=== PATIENT | female | born 1955 ===

== ENCOUNTER 2016-10-30 09:13 | Day surgery (SDC) | payer MEDICAID ==
[2016-10-30 09:44] VITALS: RESP 18
[2016-10-30 09:45] VITALS: BMI 38.5
[2016-10-30] MEDS ORDERED: Lidocaine 1% Inj (20ml) ONE (14:25)
[2016-10-30] MEDS ORDERED: MethylPREDNISolone Depo 40 mg/ml Inj ONE (14:25)
[2016-10-30] MEDS ORDERED: Bupivacaine HCl 0.25% PF (10 ml) Inj ONE (14:25)
[2016-10-30] MEDS ORDERED: Iohexol 300 10 ML ONE (14:25)
[2016-10-30] MEDS ORDERED: Propofol 10 mg/ml Inj (20 ML) ONE (14:30)
[2016-10-30] MEDS ORDERED: Lactated Ringer's 1,000 ML IV ONE (14:39)
[2016-10-30] MEDS ORDERED: Lidocaine 1% Inj (20ml) IJ ONE (14:45)
[2016-10-30] MEDS ORDERED: methylPREDNISolone Depo 80 mg/ml Inj IM ONE (14:45)
[2016-10-30] MEDS ORDERED: Bupivacaine HCl 0.25% PF (10 ml) Inj IJ ONE (14:45)
[2016-10-30] MEDS ORDERED: Lactated Ringer's 1,000 ML IV SCH (14:55)
--- NOTE | 2016-10-30 15:20 | OP ---
PROCEDURE DATE: 10/30/2016 PREOPERATIVE DIAGNOSIS: Lumbar spondylosis. POSTOPERATIVE DIAGNOSIS: Lumbar spondylosis. PROCEDURE: Bilateral lumbar medial nerve branch block under fluoroscopic guidance at bilateral L3-L4, L4-L5 and L5-S1. COMPLICATIONS: None. EXPECTED BLOOD LOSS: None. ANESTHESIOLOGIST: Dr. Burns. TECHNIQUE: After informed consent was obtained, the patient was brought to the OR and placed on the table in prone position. All pressure points were padded, and sedation was administered by anesthesia. The patient's lumbosacral spine was then prepped with iodine x 3 and draped in normal sterile fashion. Using lidocaine with a 25 gauge needle, 1% lidocaine(3cc) was used for a skin wheal. X-ray was used in the AP view to locate the right L3-L4 intersection between the transverse process and the superior articular process. Using x-ray in the AP view, a 22 gauge 3-1/2 inch spinal needle was advanced to bony contact at the intersection of right L3-L4 superior articular process and transverse process. The patient had no paresthesia during placement of the needle. After negative aspiration for heme or CSF, 1 mL of 0.25% preservative-free Marcaine and Depo-Medrol was easily injected at this spot. This procedure was repeated for the right L4-L5, L5-S1 and left L3-4, L4-5 and L5-S1 under fluoroscopic guidance. The patient had no paresthesia during the procedure. 80 mg of Depo- Medrol was used for the case. The patient was brought to stage 2 recovery room with stable vital signs and bilateral lower extremity motor and sensory intact. Delia Sanchez MD cc: [id number] TT: 10/30/2016 15:19:34 jose CHRISTIE
[2016-10-30 16:53] VITALS: BP 149/69; PULSE 58; TEMP 97.6; O2SAT 98
--- NOTE | 2016-11-01 14:02 | RAD ---
PROCEDURE: Lumbar Epidural Injection HISTORY: PAIN MANAGEMENT TECHNIQUE: Fluoroscopic guidance was provided for epidural injection for pain management purposes. FINDINGS: IMPRESSION: Fluoroscopic guidance provided for epidural injection. Please refer procedure.
== END 2016-10-30 17:15 | disposition home or self-care (01) ==
LOC: H.OPSURG 09:13
PROVIDERS: ATTEND Anesthesiology Pain Medicine
DX: M47.816 Spondylosis without myelopathy or radiculopathy, lumbar region (principal)

== ENCOUNTER 2016-11-08 14:39 | Emergency (ER) | payer MEDICAID ==
[2016-11-08 14:39] VITALS: BMI 38.5
[2016-11-08 15:00] VITALS: BP 132/57; PULSE 66; RESP 18; TEMP 98.1; O2SAT 97
--- NOTE | 2016-11-08 16:58 | ED PDOC ---
HPI: Back Time Seen by Provider: 11/08/16 16:53 Chief Complaint (Nursing): Back Pain Chief Complaint (Provider): gallock pain History Per: Patient History/Exam Limitations: no limitations Previous Symptoms: Back Pain Additional Complaint(s): 61yo F in for evla of back pain acute sharp radiating from lower back up to head causing ANTONIO-intermittent on three occasions since last night. no vomiting or nausea. admits to night sweats x1 week no fever chills or body aches. denies saddle anesthesia, denies urine/BM incontinence denies numbness/tingling in LE. denies recent injury-admits to hx of chronic back pain currently seeing pain mgnt and had epidural inj. 9 days ago-denied any complication since. pt also c/o of cough-however recently dx with emphysema taking singuliar but not advair as Rx - Risk Factors AAA Risk Factors: Pos: Older Than 49 Years Of Age Neg: Hypertension, Connective Tissue Disease, Marfan's Syndrome, Dago- Danlos Syndrome, Prior AAA, 1st Degree Relative/s With AAA Past Medical History Reviewed: Historical Data, Nursing Documentation, Vital Signs Vital Signs: Last Vital Signs Temp 98.1 F 11/08/16 14:56 Pulse 66 11/08/16 14:56 Resp 18 11/08/16 14:56 BP 132/57 L 11/08/16 14:56 Pulse Ox 97 11/08/16 14:56 - Medical History PMH: Diabetes, Diverticulitis, Emphysema, HTN, Hypercholesterolemia Denies: Chronic Kidney Disease - Surgical History Surgical History: Cholecystectomy, Coronary Stent (X2) - Family History Family History: States: No Known Family Hx - Home Medications Home Medications: Ambulatory Orders Medication Instructions Recorded Aspirin [Aspirin EC] 81 mg PO DAILY 07/24/15 Atorvastatin [Lipitor] 10 mg PO DAILY 07/24/15 Metoprolol Succinate 25 mg PO HS 07/24/15 Albuterol HFA [Ventolin HFA 90 1 puff IH DAILY 10/30/16 mcg/actuation (8 g)] Famotidine [Pepcid] 20 mg PO DAILY 10/30/16 Fluticasone/Salmeterol 250/50 1 puff IH BID 10/30/16 [Advair Diskus] Montelukast [Singulair] 10 mg PO DAILY 10/30/16 Nitroglycerin [Nitrostat] 0.4 mg SL PRN PRN 10/30/16 Ranolazine [Ranexa] 500 mg PO BID 10/30/16 Valsartan/Hydrochlorothiazide 1 tab PO DAILY 10/30/16 [Valsartan and Hydrochlorothiazide 12.5 mg-80 ] metFORMIN [glucOPHAGE] 500 mg PO DAILY 10/30/16 - Allergies Allergies/Adverse Reactions: Allergies Allergy/AdvReac Type Severity Reaction Status Date / Time No Known Allergies Allergy Verified 06/25/14 10:07 Review of Systems ROS Statement: Except As Marked, All Systems Reviewed And Found Negative Constitutional: Positive for: Sweats. Negative for: Fever, Chills, Weakness Respiratory: Positive for: Cough, Wheezing Gastrointestinal: Negative for: Nausea, Vomiting, Abdominal Pain Genitourinary Female: Negative for: Dysuria, Hematuria Musculoskeletal: Positive for: Back Pain Neurological: Positive for: Headache. Negative for: Weakness, Numbness, Dizziness Physical Exam - Reviewed Nursing Documentation Reviewed: Yes Vital Signs Reviewed: Yes - Physical Exam Appears: Positive for: Well, Non-toxic, No Acute Distress Head Exam: Positive for: ATRAUMATIC, NORMAL INSPECTION, NORMOCEPHALIC Skin: Positive for: Normal Color, Warm, DRY Eye Exam: Positive for: Normal appearance Neck: Positive for: Normal, Painless ROM Cardiovascular/Chest: Positive for: Regular Rate, Rhythm Respiratory: Positive for: Wheezing. Negative for: Decreased Breath Sounds, Accessory Muscle Use, Crackles, Respiratory Distress, Plerual Rub Gastrointestinal/Abdominal: Positive for: Normal Exam, Bowel Sounds, Soft. Negative for: Tenderness Back: Positive for: Normal Inspection, Muscle Spasm. Negative for: L CVA Tenderness, R CVA Tenderness, Vertebral Tenderness, Decreased ROM Extremity: Positive for: Normal ROM Neurologic/Psych: Positive for: Alert, Oriented - ECG O2 Sat by Pulse Oximetry: 97 - Radiology X-Ray: Interpreted by De X-Ray Interpretation: No Acute Disease Medical Decision Making Medical Decision Making: flu negative in ED chest xray negative in Ed considering pt is working with pain mgnt can't be rx narcotics from ED will be given torodol IM inj and advised to continue motrin or tylenol for pain. pain most likely an exacerbation of dx herniation of disc. Disposition - Clinical Impression Clinical Impression: Back pain - Patient ED Disposition Is Patient to be Admitted: No Counseled Patient/Family Regarding: Studies Performed, Diagnosis, Need For Followup - Disposition Disposition: Routine/Home Disposition Time: 17:01 Condition: STABLE Instructions: Lumbar Disc Herniation (ED), Epidural Steroid Injection (GEN)
--- NOTE | 2016-11-08 17:29 | RAD ---
HISTORY: cough COMPARISON: 06/25/2014. TECHNIQUE: Chest PA and lateral FINDINGS: LUNGS: The lungs are well inflated and clear. PLEURA: No significant pleural effusion identified. No pneumothorax apparent. CARDIOVASCULAR: Normal. OSSEOUS STRUCTURES: No significant abnormalities. VISUALIZED UPPER ABDOMEN: Normal. OTHER FINDINGS: None. IMPRESSION: No active pulmonary disease.
== END 2016-11-08 18:11 | disposition home or self-care (01) ==
LOC: H.ER 14:39
DX: E11.9 Type 2 diabetes mellitus without complications (principal); E78.00 Pure hypercholesterolemia, unspecified; I10 Essential (primary) hypertension; Z79.82 Long term (current) use of aspirin; Z79.84 Long term (current) use of oral hypoglycemic drugs; Z95.5 Presence of coronary angioplasty implant and graft; M54.9 Dorsalgia, unspecified

== ENCOUNTER 2016-11-27 11:21 | Day surgery (SDC) | payer MEDICAID ==
[2016-11-27] MEDS ORDERED: Bupivacaine HCl 0.25% PF (30 ml) Inj ONE (12:39)
[2016-11-27] MEDS ORDERED: methylPREDNISolone Depo 80 mg/ml Inj ONE (12:39)
[2016-11-27] MEDS ORDERED: Iohexol 300 10 ML ONE (12:39)
[2016-11-27] MEDS ORDERED: Lidocaine 1% Inj (20ml) ONE (12:40)
[2016-11-27] MEDS ORDERED: Propofol 10 mg/ml Inj (20 ML) ONE (13:05)
[2016-11-27] MEDS ORDERED: Iohexol 300 10 ML IJ ONE (13:15)
[2016-11-27] MEDS ORDERED: Bupivacaine HCl 0.25% PF (30 ml) Inj IJ ONE (13:15)
[2016-11-27] MEDS ORDERED: methylPREDNISolone Depo 80 mg/ml Inj IM ONE (13:15)
[2016-11-27] MEDS ORDERED: Lidocaine 1% Inj (20ml) IM ONE (13:15)
[2016-11-27] MEDS ORDERED: HYDROmorphone 0.5 mg/0.5 ml ISec IVP PRN (13:40)
[2016-11-27] MEDS ORDERED: Lactated Ringer's 1,000 ML IV SCH (13:45)
[2016-11-27 14:04] VITALS: TEMP 97.3; O2SAT 98
[2016-11-27] MEDS ORDERED: Oxycodone/Acetaminophen 5/325 mg Tab PO PRN (14:10)
[2016-11-27 14:15] VITALS: BP 128/69; PULSE 52; RESP 14
--- NOTE | 2016-11-27 15:59 | OP ---
PROCEDURE DATE: 11/27/2016 PREOPERATIVE DIAGNOSIS: Lumbar radiculopathy. POSTOPERATIVE DIAGNOSIS: Lumbar radiculopathy. PROCEDURE: Caudal epidural under fluoroscopic guidance. COMPLICATIONS: None. EXPECTED BLOOD LOSS: None. ANESTHESIOLOGIST: Dr. Flannery After informed consent was obtained, the patient was brought to the OR and placed on the table in a prone position. All pressure points were padded, and sedation was administered by anesthesia. Sterile prep was performed of lumbosacral spine with iodinex3. The caudal epidural space was x-rayed in the AP and lateral views. Using 1 mL of 1% lidocaine, a skin wheal was created. Under lateral view, an 18-gauge Tuohy epidural needle was advanced through the sacrococcygeal ligament. There was no paresthesia during placement of the epidural needle. After negative aspiration for heme or CSF, 1 mL of contrast was used to delineate the caudal epidural space. There was negative aspiration of heme or CSF prior to any injectate. After negative aspiration for heme or CSF, 15 mL of 0.5% lidocaine,0.25% Preservative-Free Marcaine, and depomedrol was easily instilled into the caudal epidural space. There was no paresthesia during the procedure. Eighty mg of Depo-Medrol was used. The patient was brought to stage 2 recovery room in stable condition with stable vital signs and bilateral lower extremity motor and sensory intact. Delia Sanchez MD cc: [id number] TT: 11/27/2016 15:58:24 en MTDD
== END 2016-11-27 15:20 | disposition home or self-care (01) ==
LOC: H.OPSURG 11:21
PROVIDERS: ATTEND Anesthesiology Pain Medicine
DX: M54.16 Radiculopathy, lumbar region (principal)

== ENCOUNTER 2018-03-23 18:01 | Emergency (ER) | payer MEDICAID ==
[2018-03-23 18:01] VITALS: BMI 38.5
[2018-03-23 18:35] VITALS: BP 124/76; PULSE 75; RESP 16; TEMP 98.5; O2SAT 98
--- NOTE | 2018-03-23 20:29 | ED PDOC ---
Lower Extremity Pain/Injury Time Seen by Provider: 03/23/18 18:48 Chief Complaint (Nursing): Lower Extremity Problem/Injury Chief Complaint (Provider): foot pain, left History Per: Patient History/Exam Limitations: no limitations Onset/Duration Of Symptoms: Other (today) Current Symptoms Are (Timing): Still Present Additional Complaint(s): 03/23/2018 20:30 63 year old female, whose past medical history includes diabetes, hypertension, hypercholesteremia, diverticulitis, emphysema, coronary stent, and chronic knee pain, who presents to the ED complaining of left foot pain s/p fall this morning. Patient sates she was going to the dentist when her umbrella got caught in the door. Patient notes she tripped, twisting her left foot, and fell onto hre right knee. Patient states she took tramadol, which he has for chronic knee pain, for her pain. Patient states pain to right knee is no worse than usual. Patient denies any LOC, head trauma, chest pain, SOB, abdominal pain, nausea, vomiting, diarrhea, or any other complaints. - Knee Description Of Injury: Fell - Ankle/Foot Description Of Injury: Twisted Past Medical History Reviewed: Historical Data, Nursing Documentation, Vital Signs Vital Signs: Last Vital Signs Temp 98.5 F 03/23/18 18:31 Pulse 75 03/23/18 18:31 Resp 16 03/23/18 18:31 BP 124/76 03/23/18 18:31 Pulse Ox 98 03/23/18 18:31 - Medical History PMH: Diabetes, Diverticulitis, Emphysema, HTN, Hypercholesterolemia Denies: Chronic Kidney Disease - Surgical History Surgical History: Cholecystectomy, Coronary Stent (X2) - Family History Family History: States: No Known Family Hx - Home Medications Home Medications: Ambulatory Orders Medication Instructions Recorded Aspirin [Aspirin EC] 81 mg PO DAILY 07/24/15 Atorvastatin [Lipitor] 10 mg PO DAILY 07/24/15 Metoprolol Succinate 25 mg PO HS 07/24/15 Albuterol HFA [Ventolin HFA 90 1 puff IH DAILY 10/30/16 mcg/actuation (8 g)] Famotidine [Pepcid] 20 mg PO DAILY 10/30/16 Fluticasone/Salmeterol 250/50 1 puff IH BID 10/30/16 [Advair Diskus] Montelukast [Singulair] 10 mg PO DAILY 10/30/16 Nitroglycerin [Nitrostat] 0.4 mg SL PRN PRN 10/30/16 Ranolazine [Ranexa] 500 mg PO BID 10/30/16 Valsartan/Hydrochlorothiazide 1 tab PO DAILY 10/30/16 [Valsartan and Hydrochlorothiazide 12.5 mg-80 ] metFORMIN [glucOPHAGE] 500 mg PO DAILY 10/30/16 - Allergies Allergies/Adverse Reactions: Allergies Allergy/AdvReac Type Severity Reaction Status Date / Time No Known Allergies Allergy Verified 06/25/14 10:07 Review of Systems ROS Statement: Except As Marked, All Systems Reviewed And Found Negative Constitutional: Negative for: Fever Respiratory: Negative for: Cough, Shortness of Breath Gastrointestinal: Negative for: Nausea, Vomiting Musculoskeletal: Positive for: Foot Pain (left foot pain), Other (rt knee pain) Skin: Negative for: Rash Physical Exam - Reviewed Nursing Documentation Reviewed: Yes Vital Signs Reviewed: Yes - Physical Exam Appears: Positive for: Well, Non-toxic, No Acute Distress Head Exam: Positive for: ATRAUMATIC, NORMAL INSPECTION, NORMOCEPHALIC Skin: Positive for: Normal Color Eye Exam: Positive for: Normal appearance ENT: Positive for: Normal ENT Inspection Neck: Positive for: Normal Cardiovascular/Chest: Positive for: Regular Rate, Rhythm Respiratory: Positive for: CNT, Normal Breath Sounds Gastrointestinal/Abdominal: Positive for: Normal Exam Back: Positive for: Normal Inspection Extremity: Positive for: Normal ROM, Tenderness (diffused tenderness leftfoot), Other (bruise on dorsal left foot; sensation intact). Negative for: Swelling Neurologic/Psych: Positive for: Alert, Oriented - ECG O2 Sat by Pulse Oximetry: 98 Medical Decision Making Medical Decision Makin03/23/2018 20:30 Impression: 63 year old female presents to the ED c/p left foot pain s/p fall. Plan: -- Xray left foot Progress Notes: Disposition - Clinical Impression Clinical Impression: Foot injury - Patient ED Disposition Is Patient to be Admitted: No Counseled Patient/Family Regarding: Diagnosis, Need For Followup - Disposition Referrals: Podiatry Clinic [Outside] Disposition: Routine/Home Disposition Time: 20:27 Condition: GOOD Additional Instructions: Ice, elevation. Instructions: Foot Sprain (DC) Forms: [employer] (French)
--- NOTE | 2018-03-24 09:22 | RAD ---
Date of service: 03/23/2018 PROCEDURE: Left Foot Radiographs. HISTORY: fall, twisted foot COMPARISON: Left foot radiographs dated 08/03/2009. FINDINGS: BONES: Questionable distal intra-articular fracture of the 1st proximal phalanx. JOINTS: First metatarsal joint space narrowing. SOFT TISSUES: Normal. OTHER FINDINGS: None. IMPRESSION: Questionable distal 1st proximal phalanx intra-articular fracture. ER notification submitted electronically.
== END 2018-03-23 20:45 | disposition home or self-care (01) ==
LOC: H.ER 18:01
DX: S99.922A Unspecified injury of left foot, initial encounter (principal); W01.0XXA Fall on same level from slipping, tripping and stumbling without subsequent striking against object, initial encounter; E11.9 Type 2 diabetes mellitus without complications; E78.00 Pure hypercholesterolemia, unspecified; I10 Essential (primary) hypertension; J43.9 Emphysema, unspecified; Z79.82 Long term (current) use of aspirin; Z79.84 Long term (current) use of oral hypoglycemic drugs; Z95.5 Presence of coronary angioplasty implant and graft